=== PATIENT | male | born 1970 | race Hispanic/Latino ===

== ENCOUNTER 2022-06-11 16:40 | Emergency (ER) | payer OTHER, SELFPAY ==
[~2022-06-11 16:40] MED LIST: Iopamidol 370 76% 100 ML VIAL ONE
[2022-06-11 18:56] LABS: Anion Gap 13 mmol/L (10-20); BUN (Urea Nitrogen) 13 mg/dL (8.4-25.7); Band 1 % (5-11); Calc. Creatinine Clearance 0 mL/min (70-130); Calcium 11.2 mg/dL (7.8-10.44); Carbon Dioxide 26 mmol/L (22-29); Chloride 102 mmol/L (98-107); Estimated GFR 91; Glucose 228 mg/dL (70-105); Hemoglobin 14.4 g/dL (14.0-18.0); Lymphocytes 25 % (21-51); MDiff Complete? YES; Magnesium 1.8 mg/dL (1.6-2.6); Mean Corpuscular HGB CONC 33.3 g/dL (32.0-36.0); Mean Corpuscular Hemoglobin 30.9 pg (27.0-31.0); Mean Corpuscular Volume 92.6 fL (78.0-98.0); Mean Platelet Volume 7.6 fL (7.4-10.4); Monocytes 11 % (0-10); Neutrophil 56 % (42-75); Platelet Count 226 thou/uL (130-400); Platelet Morphology Comment Appears Adequate; Potassium 4.2 mmol/L (3.5-5.1); RBC Distribution Width 11.4 % (11.5-14.5); RBC Morphology Normal; Reactive Lymphocytes 7 % (0-10); Red Blood Cell (RBC) Count 4.66 mill/uL (4.70-6.10); Sodium 137 mmol/L (136-145); White Blood Cell (WBC) Count 6.3 thou/uL (4.8-10.8)
[2022-06-11] MEDS ORDERED: Sodium Chloride 0.9% 1,000 ML ONE (19:36)
== END 2022-06-11 21:08 | disposition home or self-care (01) ==
LOC: MADERS 16:40
DX: J02.9 Acute pharyngitis, unspecified (principal); E83.52 Hypercalcemia; I10 Essential (primary) hypertension; R73.9 Hyperglycemia, unspecified; H72.91 Unspecified perforation of tympanic membrane, right ear
CPT/HCPCS: 36415; 70491; 80048; 83735; 85025; 87081; 87430; 96360; J7050; Q9967